=== PATIENT | female | born 2000 | race Two or more races ===

== ENCOUNTER 2023-03-18 19:22 | Emergency (ER) | payer OTHER ==
[~2023-03-18] VITALS: Ht 154.9 cm; Wt 63.0 kg
== END 2023-03-18 22:24 | disposition home or self-care (01) ==
LOC: ER 19:22
DX: S91.331A Puncture wound without foreign body, right foot, initial encounter (principal); W45.0XXA Nail entering through skin, initial encounter; Y93.9 Activity, unspecified; Y92.9 Unspecified place or not applicable

== ENCOUNTER 2025-04-25 10:10 | Emergency (ER) | payer OTHER ==
[~2025-04-25] VITALS: Ht 154.9 cm; Wt 59.0 kg
== END 2025-04-25 10:56 | disposition home or self-care (01) ==
LOC: ER 10:38
DX: E16.2 Hypoglycemia, unspecified (principal); R51.9 Headache, unspecified